=== PATIENT | male | born 1960 ===

== ENCOUNTER 2018-02-01 08:10 | Day surgery (SDC) | payer BC ==
[2018-01-31 10:06] VITALS: BMI 35.9
[2018-02-01] MEDS ORDERED: ceFAZolin SODIUM 1 GM VIAL ONE (10:27)
[2018-02-01] MEDS ORDERED: PROPOFOL 20 ML ONE ×2 (10:27)
[2018-02-01] MEDS ORDERED: MIDAZOLAM HCL 2 MG/2 ML SINGLE DOSE VIAL ONE (10:27)
[2018-02-01] MEDS ORDERED: DEXAMETHASONE SOD PHOSPHATE 4 MG/1 ML VIAL ONE (10:37)
[2018-02-01] MEDS ORDERED: BENZOIN TINCTURE SWABSTICK TP ONE (10:37)
[2018-02-01] MEDS ORDERED: LIDOCAINE HCL 1%, 10 MG/ML (20ML VIAL) ONE (10:37)
[2018-02-01] MEDS ORDERED: BUPIVACAINE HCL/PF 0.5% (5MG/ML) 10 ML VIAL ONE (10:37)
[2018-02-01] MEDS ORDERED: BUPIVACAINE HCL/PF 0.5% (5MG/ML) 10 ML VIAL IJ ONE ×2 (11:07→11:55)
[2018-02-01] MEDS ORDERED: LIDOCAINE HCL 1%, 10 MG/ML (20ML VIAL) PNB ONE (11:07)
[2018-02-01] MEDS ORDERED: KETOROLAC TROMETHAMINE 30 MG/1 ML VIAL ONE (11:24)
[2018-02-01] MEDS ORDERED: DEXAMETHASONE SOD PHOSPHATE 4 MG/1 ML VIAL NR ONE (11:55)
[2018-02-01] MEDS ORDERED: oxyCODONE HCL 5 MG TABLET PO PRN ×2 (12:11)
[2018-02-01] MEDS ORDERED: ONDANSETRON 4 MG/2 ML VIAL IVPUSH PRN (12:11)
[2018-02-01] MEDS ORDERED: LACTATED RINGERS SOLUTION 1,000 ML IV SCH (12:15)
[2018-02-01 16:41] VITALS: BP 110/68; PULSE 88; TEMP 98.2
--- NOTE | 2018-02-04 15:39 | PATH ---
Surgical Pathology Report Patient Name: GILSON KRAFT [facility]. Rec. #: [id number] /Age/Gender: 1960 (Age: 57) / M Account: [id number] Location: [facility] SURGICAL Taken: 02/01/2018 Received: 02/01/2018 Reported: 02/04/2018 Physicians: Melia Wei DPM Specimen(s) Received BONE FROM LEFT FOOT Clinical History Left hallux valgus Final Diagnosis FOOT, LEFT, BONE, BUNIONECTOMY: BONE WITH DEGENERATIVE CHANGES AND REACTIVE SYNOVIUM. SCANT NODULAR DEPOSITS OF CRYSTALLINE MATERIAL SURROUNDED BY FIBROUS TISSUE AND HISTIOCYTES; CONSISTENT WITH GOUTY TOPHI. Comment: Suggest clinical and serologic correlation. Electronically Signed Lucía Seo M.D. Gross Description Received in formalin, labeled "bone from left foot" are multiple irregular portions of bone measuring 2.0 x 2.0 x 0.3 cm in aggregate. The specimen is submitted in toto in one cassette after decalcification. [place]/02/01/2018 bev/02/01/2018
--- NOTE | 2018-02-07 12:20 | OP ---
DATE OF OPERATION: 02/01/2018 PREOPERATIVE DIAGNOSIS: Left foot great toe bunion. POSTOPERATIVE DIAGNOSIS: Left foot great toe bunion. PROCEDURE: Left foot Covarrubias bunionectomy. SURGEON: Melia Wei DPM ASSISTANTS: Tim Hanks DPM and Dr. Montez, PGY-3 ANESTHESIA: Local with MAC. PATHOLOGY: Left foot bone and soft tissue. ESTIMATED BLOOD LOSS: 5 mL HEMOSTASIS: Left ankle tourniquet at 250 mmHg and electrocautery. MATERIALS USED: 2-0, 3-0, 4-0, 5-0 Vicryl sutures. Tincture of benzoin. Steri-Strips, and Betadine-soaked Adaptic and 4 x 8 gauze, Kerlix, and Mir bandage. INJECTABLES: A 1:1 mixture of 1% lidocaine and 0.5% Marcaine 18 mL was injected preoperatively, and 10 mL of 8:2 mixture of 0.5% Marcaine and 4 mg dexamethasone were injected postoperatively. CONDITION OF THE PATIENT: Stable. COMPLICATIONS: None. DESCRIPTION: The patient was brought to the operating room and placed on the operating table in a supine position. A pneumatic ankle tourniquet was then placed on the patient's left ankle. Following IV sedation, local anesthesia was obtained using a 1:1 mixture of 1% lidocaine plan and 0.5% Marcaine plain. Preoperatively, total of 18 mL was injected throughout the surgical site, left great toe. The left foot was then scrubbed, prepped and draped in the usual aseptic manner. An Esmarch bandage was then utilized to exsanguinate the patient's left foot, and the tourniquet was inflated. Attention was first directed to the dorsal aspect of the first metatarsal head of the left foot where a linear incision was made medial and parallel to the tendon of extensor hallucis longus. The incision was then deepened through the subcutaneous tissue using sharp and blunt dissection. Care was taken to identify all vital neural and vascular structures. All bleeders were then ligated and cauterized as necessary. At this time, a linear capsulotomy was then performed over the dorsal aspect of the 1st metatarsophalangeal joint. The periosteal and capsular structures were carefully dissected medially and laterally, thus exposing the head of the 1st metatarsal. At this time, hypertrophic dorsal osteophytes noted on the dorsal aspect of the metatarsal head and they were removed. Attention was first directed to the medial aspect of the 1st metatarsal head. Using sagittal saw, the medial prominence was then resected and passed from the operative field and sent to pathology. At this time, using a rongeur, the dorsal osteophytes were removed and sent to Pathology. Using a power gisella, all the sharp edges were smoothened, and at this time, the position of the great toe was assessed and evaluated. At this time, the dorsal aspect of the metatarsal head as well as the base of the proximal phalanx was evaluated, and further dorsal osteophytes at the base of the proximal phalanx was removed using a rongeur and sent to Pathology. The wound was then irrigated with copious amount of normal saline that had antibiotic in it, and the capsular and subcutaneous tissue strictures were closed using 2-0, 3-0, 4-0. sutures. 5.0 vicryl for subcuticular closure. Benzoin tincture was then applied with Steri-Strips cross the incision site. Postoperative dressing such as Betadine-soaked Adaptic with sterile gauze, Kerlix, and Mir bandage applied to the left foot. The left ankle tourniquet was then deflated. Prior to the dressing, there was a postoperative injection of 10 mL of 8:2 mixture of 0.5% and 4 mg dexamethasone was injected to the left foot and the postoperative dressing was applied. The left ankle tourniquet was then deflated at this time, and immediate hyperemia was noted to all digits of the left foot. Patient tolerated the procedure and anesthesia well and was transferred to the recovery room with all vital signs stable and vascular status intact to the left foot. Following postoperative monitoring, the patient will be discharged home and was already given the prescriptions and instructions prior to surgery. Dr. Montez, PGY-3 dictating for KYLAH Murguia DPM BS/[id number] MIKE
== END 2018-02-01 14:35 | disposition home or self-care (01) ==
LOC: JASU-SURG 08:10
PROVIDERS: ATTEND Podiatrist Foot Surgery
PROC: 0QBR0ZZ Excision of Left Toe Phalanx, Open Approach (ICD-10-PCS; principal; 2018-02-01 09:30)
DX: M20.12 Hallux valgus (acquired), left foot (principal)
CPT/HCPCS: 73630-TC-LT; 88305-TC; 88311-TC; 94760

== ENCOUNTER 2018-02-15 06:51 | Day surgery (SDC) | payer BC ==
[2018-02-14 10:35] VITALS: BMI 37.3
[2018-02-15] MEDS ORDERED: LIDOCAINE HCL 1%, 10 MG/ML (20ML VIAL) ONE (09:12)
[2018-02-15] MEDS ORDERED: DEXAMETHASONE SOD PHOSPHATE 4 MG/1 ML VIAL ONE ×2 (09:12→10:43)
[2018-02-15] MEDS ORDERED: BUPIVACAINE HCL/PF 0.5% (5MG/ML) 10 ML VIAL ONE (09:12)
[2018-02-15] MEDS ORDERED: MIDAZOLAM HCL 2 MG/2 ML SINGLE DOSE VIAL ONE ×4 (09:20→09:40)
[2018-02-15] MEDS ORDERED: PROPOFOL 20 ML ONE ×3 (09:21)
[2018-02-15] MEDS ORDERED: ceFAZolin SODIUM 1 GM VIAL ONE (09:40)
[2018-02-15] MEDS ORDERED: ceFAZolin SODIUM 1 GM VIAL IVPB ONE (09:48)
[2018-02-15] MEDS ORDERED: BUPIVACAINE HCL/PF 0.5% (5MG/ML) 10 ML VIAL NR ONE ×2 (09:51→10:50)
[2018-02-15] MEDS ORDERED: LIDOCAINE HCL 1%, 10 MG/ML (20ML VIAL) NR ONE (09:51)
[2018-02-15] MEDS ORDERED: BENZOIN TINCTURE SWABSTICK TP ONE (10:32)
[2018-02-15] MEDS ORDERED: KETOROLAC TROMETHAMINE 30 MG/1 ML VIAL ONE (10:36)
[2018-02-15] MEDS ORDERED: DEXAMETHASONE SOD PHOSPHATE 4 MG/1 ML VIAL NR ONE (10:50)
[2018-02-15] MEDS ORDERED: BACITRACIN 50,000 UNITS VIAL TP ONE (10:50)
[2018-02-15 11:34] VITALS: TEMP 97.3
[2018-02-15 14:24] VITALS: BP 116/65; PULSE 76
--- NOTE | 2018-02-15 15:06 | OP ---
DATE OF OPERATION: 02/15/2018 PREOPERATIVE DIAGNOSIS: Right foot bunion. POSTOPERATIVE DIAGNOSIS: Right foot bunion. PROCEDURE PERFORMED: Bunionectomy, right foot. SURGEON: Melia Wei DPM CORNICE MAKER: Dr. Vargas, PGY-3; Timeris Hanks DPM ANESTHESIA: Local with monitored anesthesia care. PATHOLOGY: Bone and soft tissue. HEMOSTASIS: Pneumatic ankle tourniquet, right ankle, set to 250 mmHg, and electrocautery. ESTIMATED BLOOD LOSS: 5 mL. MATERIALS USED: 1. Vicryl sutures, sizes 3-0, 4-0 and 5-0. 2. Mastisol and Steri-Strips. 3. Betadine-soaked Adaptic. 4. Dry sterile dressings. 5. Mir bandage. INJECTABLES: 1. A 1:1 mixture of 10 mL of 1% lidocaine plain and 0.5% Marcaine was injected preoperatively. 2. An 8:2 mixture of 10 mL of dexamethasone 4 mg and 0.5% Marcaine plain was injected postoperatively. CONDITION OF PATIENT: Stable. COMPLICATIONS: None. DESCRIPTION OF PROCEDURE: The patient was brought to the operating room and placed supine on the operating room table. A pneumatic ankle tourniquet was then placed on the patient's right ankle. Following IV sedation, local anesthesia was obtained utilizing a 1:1 mixture of 1% lidocaine plain and 0.5% Marcaine plain preoperatively. A total of 10 mL was injected to the right foot. The right foot was then scrubbed, prepped and draped in the usual aseptic manner. An Esmarch bandage was then utilized to exsanguinate the patient's right foot and the tourniquet was inflated. Attention was first directed to the dorsal aspect of the 1st metatarsal head of the right foot, where a linear incision was made medial and parallel to the tendon of the extensor hallucis longus. The incision was then deepened through the subcutaneous tissue using sharp and blunt dissection. Care was taken to identify and retract all vital neural and vascular structures. All bleeders were ligated and cauterized as necessary. At this time, a linear capsulotomy was performed over the dorsal aspect of the 1st metatarsophalangeal joint. The periosteal and capsular structures were then carefully dissected medially and laterally, thus exposing the head of the 1st metatarsal. Attention was then directed to the medial aspect of the 1st metatarsal head. Using a sagittal saw, the medial prominence was then resected and passed from the operative field. Hypertrophic osteophytes were noted dorsally as well as at the base of the proximal phalanx of the right great toe. Using the sagittal saw, the dorsal and the medial osteophytes were resected as well as on the head of the 1st metatarsal on the lateral aspect. Osteophytes were removed using a rongeur as well as the sagittal saw. All of the sharp edges were smoothed using a power gisella. The position of the great toe had improved significantly. At this time, the wound was irrigated with copious amounts of normal saline that contained Bacitracin. The capsular and subcutaneous tissues were closed using 3-0, 4-0 and 5-0 Vicryl sutures. The skin was reapproximated using 5-0 Vicryl sutures. During the surgery, crystallized gouty tophi were noted within the metatarsophalangeal joint. These were removed and sent for pathology. Mastisol and Steri-Strips were then applied to the skin edges. A postoperative injection containing 10 mL of an 8:2 mixture of 0.5% Marcaine and dexamethasone 4 mg was infiltrated throughout the surgical site. Postoperative dressings, including Betadine-soaked Adaptic, 4 x 4 sterile gauze, Kajal and an Mir bandage were applied to the right foot. The ankle tourniquet was then deflated and immediate hyperemia was noted to all digits of the right foot. The patient tolerated the procedure and anesthesia well and was transferred to the recovery room with all vital signs stable and vascular status intact to the right foot. Following postoperative monitoring, the patient will be discharged and has already been given instructions and prescriptions, which were discussed prior to surgery. KYLAH Murguia/[id number]
--- NOTE | 2018-02-18 17:35 | PATH ---
Surgical Pathology Report Patient Name: GILSON KRAFT [facility]. Rec. #: [id number] /Age/Gender: 1960 (Age: 57) / M Account: [id number] Location: [facility] SURGICAL Taken: 02/15/2018 Received: 02/15/2018 Reported: 02/18/2018 Physicians: Melia Wei DPM Specimen(s) Received BONE,SKIN AND SOFT TISSUE, RIGHT FOOT BUNION Clinical History Bunion right foot Final Diagnosis FOOT, RIGHT, BUNION, BONE, SKIN, SOFT TISSUE, EXCISION: BONE WITH DEGENERATIVE CHANGES. FIBROSYNOVIAL TISSUE WITH RARE NODULAR DEPOSITS OF CRYSTALLINE MATERIAL SURROUNDED BY FIBROUS TISSUE AND HISTIOCYTES; CONSISTENT WITH GOUTY TOPHI. Electronically Signed Lucía Seo M.D. Gross Description Received in formalin labeled "bone, skin, soft tissue right foot bunion," is a 4.0 x 2.3 x 0.3 cm aggregate of multiple portions of bone and soft tissue. Business Services Intern sections are submitted in one cassette, following decalcification. /02/15/201802/15/2018
== END 2018-02-15 15:30 | disposition home or self-care (01) ==
LOC: JASU-SURG 06:51
PROVIDERS: ATTEND Podiatrist Foot Surgery
PROC: 0QSN04Z Reposition Right Metatarsal with Internal Fixation Device, Open Approach (ICD-10-PCS; principal; 2018-02-15 09:00)
DX: M20.11 Hallux valgus (acquired), right foot (principal); M21.611 Bunion of right foot
CPT/HCPCS: 73630-TC-RT-FY; 88305-TC; 88311-TC